=== PATIENT | male | born 1995 | race Caucasian/White ===

== ENCOUNTER 2024-11-11 23:36 | Emergency (ER) | payer OTHER ==
[~2024-11-11] VITALS: Ht 179.1 cm; Wt 111.2 kg
[2024-11-11 23:37] VITALS: TEMP 99
--- NOTE | 2024-11-11 23:45 | Physician Documentation ---
History of Present Illness ~ Chief Complaint: Ankle pain Stated Complaint: LEG INJURY Time Seen by MD: 23:43 HPI 28-year-old male, overall healthy, who presents with a right ankle injury. He tells me he was camping, tried to jump over a fire, and landed wrong, rolling his right ankle. He immediately had significant pain and swelling. He was not able to walk. He denies any other associated injuries including head or neck injury. He did use alcohol, mushrooms and cocaine tonight. EMS splinted his ankle. Medication Reconciliation Allergies: Coded Allergies: No Known Allergies (Unverified , 11/12/24) Review of Systems Musculoskeletal: Reports: joint pain, joint swelling Physical Exam Vital Signs: Temperature: 99.0, Source: Oral, Heart Rate: 130, Respiratory Rate: 18, BP: 152/93, Pulse Oximetry: 97, Weight: 111.200 Oxygen Flow Rate: 0 Physical Exam General: This is a very pleasant and likely intoxicated young man, friend at bedside HEENT: Atraumatic, oropharynx is moist Heart: Significant tachycardic, appears regular Lungs: normal work of breathing, normal oxygen saturation on room air Extremities: Warm and well-perfused Right lower extremity: The patient has obvious swelling to the right ankle diffusely, but I am actually able to arrange his ankle laterally and medially as well as flexing it, without significant pain reaction. He does have some mild diffuse tenderness on palpation of the ankle but no focal bony point tenderness. No tenderness on palpation of the proximal fibula or knee. No tenderness on palpation of the bones of the foot. He reports some generalized numbness to the entire foot. Neuro: Alert and oriented, no focal deficits Psychiatric: The patient has an intense affect, is laughing and talking loudly, appears likely intoxicated as he admits to, but is cooperative and very pleasant Progress Results/Orders Results/Orders Orders - BRUNA CARDOZA MD Ankle, Complete(3vw Min) (11/11/24 23:43) Completed Orders - BRUNA CARDOZA MD, Complete(3vw Min) (11/11/24 23:43) Vital Signs 11/11/24 11/12/24 11/12/24 11/12/24 23:37 00:51 01:12 01:55 Temp 99.0 Pulse 130 109 97 Resp 18 16 14 18 B/P (MAP) 152/93 122/85 (97) 124/80 Pulse Ox 97 94 99 O2 Flow Rate 0 0 EKG/XRAY/CT/US/VASC/MRI Bone/Soft Tissue X-Ray (Ext.) : Additional Comment I personally reviewed the x-ray, and it shows: No acute ankle fracture, dislocation, or large joint effusion. There is soft tissue swelling Medical Decision Making General Diff Dx:Considerations: Include: Abrasion, Contusion, Fracture, Sprain Additional Comment The patient presents with isolated right ankle pain after an injury. On exam he does have significant swelling and pain. X-ray does not show an acute fracture or dislocation. Overall I suspect that his injuries consistent with a ankle sprain. He was given an ankle brace, home care instructions including RICE therapy, and crutches. He will be discharged with outpatient follow up if he continues to have symptoms. Departure Time of Disposition: 01:37 Disposition: 01 HOME / SELF CARE / HOMELESS Impression: Primary Impression: Sprain of ankle Condition: Improved Discharge Instructions: Ankle Sprain Referrals: NO PRIMARY CARE PROVIDER (PCP) Education Educated: Patient Educated regarding: diagnosis, treatment, need for follow up Signature Scribe Signature: na Attestation: BRUNA Villasenor MD November 11, 2024 23:45
--- NOTE | 2024-11-12 00:51 | RADIOLOGY REPORT ---
CLINICAL INDICATION: DISFEMORITY TECHNIQUE: DI TIB/FIB 2 VWS Comparison: None FINDINGS / IMPRESSION: Considerable soft tissue swelling overlying lateral malleolus. No evidence of fracture or dislocation .
[2024-11-12 01:55] VITALS: BP 124/80; PULSE 97; RESP 18; O2SAT 99
--- NOTE | 2024-11-14 15:23 | RADIOLOGY REPORT ---
CLINICAL INDICATION: ANKLE PAIN TECHNIQUE: 3 radiographic views of the right ankle were obtained. Comparison: None FINDINGS/IMPRESSION: Soft tissue swelling about the lateral ankle. Medial malleolus fracture is visualized.
== END 2024-11-12 02:00 | disposition home or self-care (01) ==
LOC: ER 23:37
DX: S93.491A Sprain of other ligament of right ankle, initial encounter (principal); X50.1XXA Overexertion from prolonged static or awkward postures, initial encounter; Y93.89 Activity, other specified; Y92.89 Other specified places as the place of occurrence of the external cause; Y99.8 Other external cause status
CPT/HCPCS: 29540; 73590; 73610; 99284; A6449